=== PATIENT | male | born 1960 | race Caucasian/White ===

== ENCOUNTER 2023-09-21 05:14 | Day surgery (SDC) | payer OTHER ==
[2023-09-18 15:26] VITALS: BMI 39.3
[2023-09-21] MEDS ORDERED: MIDAZOLAM HCL 2 MG/2 ML SINGLE DOSE VIAL ONE ×2 (11:01→11:36)
[2023-09-21] MEDS ORDERED: DEXAMETHASONE SOD PHOSPHATE 10 MG/1 ML VIAL ONE (11:03)
[2023-09-21] MEDS ORDERED: ROPIVACAINE HCL 0.5% 30ML VIAL ONE (11:03)
[2023-09-21] MEDS ORDERED: BUPIVACAINE HCL/PF 0.5% (5MG/ML) 10 ML VIAL ONE (11:36)
[2023-09-21] MEDS ORDERED: ceFAZolin SODIUM 1 GM VIAL ONE (11:45)
[2023-09-21] MEDS: ceFAZolin SODIUM 1 GM VIAL IVPB ONE (11:50)
[2023-09-21] MEDS ORDERED: oxyCODONE HCL 5 MG TABLET PO PRN (15:02)
[2023-09-21] MEDS ORDERED: ONDANSETRON 4 MG/2 ML VIAL IVPUSH PRN (15:02)
[2023-09-21] MEDS ORDERED: LACTATED RINGERS SOLUTION 1,000 ML IV SCH (15:15)
[2023-09-21 17:06] VITALS: RESP 18; TEMP 98.4
[2023-09-21 17:58] VITALS: BP 147/80; PULSE 82
== END 2023-09-21 17:58 | disposition home or self-care (01) ==
LOC: JASU-SURG 05:14
PROVIDERS: ATTEND Podiatrist Foot & Ankle Surgery
PROC: 0L8P0ZZ Division of Left Lower Leg Tendon, Open Approach (ICD-10-PCS; 2023-09-21)
PROC: 0LUP07Z Supplement Left Lower Leg Tendon with Autologous Tissue Substitute, Open Approach (ICD-10-PCS; principal; 2023-09-21 10:30)
DX: S86.012A Strain of left Achilles tendon, initial encounter (principal); X58.XXXA Exposure to other specified factors, initial encounter; Y93.9 Activity, unspecified; Y92.9 Unspecified place or not applicable; Y99.9 Unspecified external cause status
CPT/HCPCS: 27654; 27691; 28120; C1713; 73630-TC-LT; 82962; 88304-TC; 88311-TC; 94760; J1100

== ENCOUNTER 2024-02-25 04:22 | Day surgery (SDC) | payer OTHER ==
[2024-02-19 11:57] VITALS: BMI 37.3
[2024-02-25] MEDS ORDERED: LIDOCAINE 1%/EPI 1:100000 (20 ML MULTI DOSE VIAL) ONE (07:13)
[2024-02-25] MEDS ORDERED: LIDOCAINE HCL 1%, 10 MG/ML (20ML VIAL) ONE (07:13)
[2024-02-25 07:14] VITALS: BP 150/84; PULSE 75; RESP 18; TEMP 97.9
[2024-02-25] MEDS: LIDOCAINE HCL 1%, 10 MG/ML (20ML VIAL) INF ONE (08:03)
== END 2024-02-25 08:50 | disposition home or self-care (01) ==
LOC: JASU-SURG 04:22
PROVIDERS: ATTEND Orthopaedic Surgery
PROC: 015D3ZZ Destruction of Femoral Nerve, Percutaneous Approach (ICD-10-PCS; principal; 2024-02-25 08:00)
DX: M17.12 Unilateral primary osteoarthritis, left knee (principal)